=== PATIENT | female | born 1940 | race Caucasian/White ===

== ENCOUNTER 2018-07-19 10:50 | Inpatient (IN) | payer OTHER, MEDICAID ==
[~2018-07-19] VITALS: Ht 160 cm; Wt 83.5 kg
[2018-07-19 11:02] VITALS: BP_SYST 159
[2018-07-19] MEDS ORDERED: ASPIRIN 81 MG TAB.CHEW PO ONE (11:15)
[2018-07-19 11:52] LABS: BASOPHILS # (AUTO) 0.2 K/uL (0.0-0.2); BASOPHILS % (AUTO) 1.9 % (0.0-2.0); EOSINOPHILS # (AUTO) 0.1 K/uL (0.0-0.4); EOSINOPHILS % (AUTO) 0.9 % (0.0-4.0); HEMOGLOBIN 13.5 g/dL (12.0-16.0); LYMPHOCYTES # (AUTO) 1.9 K/uL (1.0-5.5); LYMPHOCYTES % (AUTO) 17.8 % (20.5-51.5); MEAN CORPUSCULAR HEMOGLOBIN 29 pg (27-31); MEAN CORPUSCULAR HGB CONC 33 % (32-36); MEAN CORPUSCULAR VOLUME 89 fL (79.0-98.0); MONOCYTES # (AUTO) 1.1 K/uL (0.0-1.0); MONOCYTES % (AUTO) 10.1 % (1.7-9.3); NEUTROPHILS # (AUTO) 7.1 K/uL (1.8-7.7); NEUTROPHILS % (AUTO) 69.3 % (40.0-70.0); RED BLOOD CELL COUNT(AUTO) 4.59 MIL/uL (4.2-6.2); RED CELL DISTRIBUTION WIDTH 14.4 % (9.0-15.0); WHITE BLOOD COUNT (AUTO) 10.4 K/uL (4.8-10.8)
[2018-07-19] MEDS ORDERED: LORA-258 PO (11:59)
[2018-07-19 12:04] LABS: ANION GAP 9 (5-15); CALCIUM 9.2 mg/dL (8.4-11.0); CHLORIDE 99 mmol/L (98-107); CREATININE 1.78 mg/dL (0.55-1.30); GLUCOSE 234 mg/dL (70-99); PLATELET COUNT (AUTO) 295 K/uL (130-430); POTASSIUM 4.1 mmol/L (3.5-5.1); SODIUM SERUM 135 mmol/L (136-145); UREA NITROGEN, BLOOD 24 mg/dL (8-21)
[2018-07-19 12:10] LABS: ALANINE AMINOTRANSFERASE 9 U/L (12-78); ALBUMIN 3.4 g/dL (3.4-4.8); ASPARTATE AMINOTRANSFERASE 22 U/L (10-37); LIPASE 73 U/L (73-393); PROTHROMBIN TIME 28.5 SECS (9.5-12.5); TOTAL BILIRUBIN 0.7 mg/dL (0.0-1.0)
[2018-07-19 12:53] LABS: BILIRUBIN,URINE NEGATIVE (NEGATIVE); BLOOD, URINE NEGATIVE (NEGATIVE); CLARITY/URINE CLEAR (CLEAR); COLOR,URINE YELLOW (YELLOW); GLUCOSE,URINE 3+ (NEGATIVE); KETONES,URINE 1+ (NEGATIVE); LEUKOCYTE ESTERASE ,URINE NEGATIVE (NEGATIVE); NITRITE, URINE POSITIVE (NEGATIVE); PROTEIN URINE TRACE (NEGATIVE)
[2018-07-19 13:14] LABS: BACTERIA,URINE MODERATE /HPF (None Seen); MUCUS,URINE None Seen /LPF (None Seen); RBC,URINE 0-3 /HPF (0-3)
[2018-07-19] MEDS ORDERED: cefTRIAXone 1 GM IVPB PREMIX 50 ML IV ONE (13:30)
[2018-07-19] MEDS ORDERED: FAMOTIDINE PF 20 MG/2 ML VIAL IVP ONE (14:00)
[2018-07-19] MEDS ORDERED: NOR10 PO (14:22)
[2018-07-19] MEDS ORDERED: INSNLG7030 SUBCUT (14:22)
[2018-07-19] MEDS ORDERED: PRO40 PO (14:22)
[2018-07-19] MEDS ORDERED: ACAR50TA PO (14:22)
[2018-07-19] MEDS ORDERED: NAPH15DR OP (14:22)
[2018-07-19] MEDS ORDERED: DULO20CA PO (14:22)
[2018-07-19] MEDS ORDERED: GABA-531 PO (14:22)
[2018-07-19] MEDS ORDERED: DOCU250C14 PO (14:22)
[2018-07-19] MEDS ORDERED: MULT-1089 PO (14:22)
[2018-07-19] MEDS ORDERED: INSU100V11 SQ (14:22)
[2018-07-19] MEDS ORDERED: CEL20 PO (14:22)
[2018-07-19] MEDS ORDERED: METO25TA6 PO (14:22)
[2018-07-19] MEDS ORDERED: TIMO5DRO4 OP (14:22)
[2018-07-19] MEDS ORDERED: LIP10 PO (14:22)
[2018-07-19] MEDS ORDERED: LURA80TA PO (14:22)
[2018-07-19] MEDS ORDERED: MOM PO (14:22)
[2018-07-19] MEDS ORDERED: LOSA100T3 PO (14:22)
[2018-07-19] MEDS ORDERED: TRI48 PO (14:22)
[2018-07-19] MEDS ORDERED: ACET325T53 PO (14:22)
[2018-07-19] MEDS ORDERED: LEVO25TA76 PO (14:22)
[2018-07-19] MEDS ORDERED: WARF3TAB PO (14:22)
[2018-07-19 15:06] VITALS: BP_SYST 174
[2018-07-19 16:00] VITALS: BP_SYST 155
[2018-07-19] MEDS ORDERED: MILK OF MAGNESIA 30 ML UDC PO PRN (16:15)
[2018-07-19] MEDS ORDERED: DULoxetine HCL 20 MG CAPSULE.DR PO SCH (16:15)
[2018-07-19] MEDS ORDERED: cloNIDine HCL 0.2 MG TABLET PO PRN (16:15)
[2018-07-19] MEDS ORDERED: NAPHAZOLINE HCL/PHENIRAMINE 15 ML OPHT. DROPS OP PRN (16:15)
[2018-07-19] MEDS ORDERED: ONDANSETRON HCL 4 MG/2 ML VIAL IVP PRN (16:15)
[2018-07-19] MEDS ORDERED: LORazepam 1 MG TABLET PO PRN (16:15)
[2018-07-19] MEDS ORDERED: DOCUSATE SODIUM 250 MG CAPSULE PO PRN (16:15)
[2018-07-19] MEDS ORDERED: ONDANSETRON HCL 4 MG/2 ML VIAL ONE (16:20)
[2018-07-19] MEDS ORDERED: METOPROLOL TARTRATE 25 MG TABLET PO ONE (16:30)
[2018-07-19] MEDS ORDERED: GABAPENTIN 300 MG CAPSULE PO ONE (16:30)
[2018-07-19] MEDS ORDERED: DEXTROSE 50% JECT 50 ML DISP.SYRIN IVP PRN (17:00)
[2018-07-19] MEDS ORDERED: METOCLOPRAMIDE HCL 10 MG/2 ML VIAL IVP PRN (17:00)
[2018-07-19] MEDS: INSULIN REGULAR, HUMAN 100 UNITS/ML, 10 ML VIAL (novoLIN R) SUBCUT PRN ×2 (17:27→22:05)
[2018-07-19] MEDS: QUEtiapine FUMARATE 25 MG TABLET PO SCH (18:00)
[2018-07-19 20:12] VITALS: BP_SYST 169
[2018-07-19] MEDS ORDERED: NON-FORMULARY MEDICATION (Lurasidone Hcl (Latuda) 1 TAB) PO SCH (21:00)
[2018-07-19] MEDS: DULoxetine HCL 30 MG CAPSULE.DR (CYMBALTA) PO SCH (21:00)
[2018-07-19] MEDS: ACETAMINOPHEN 325 MG TABLET PO SCH (21:00)
[2018-07-19] MEDS: GABAPENTIN 300 MG CAPSULE PO SCH (21:00)
[2018-07-19] MEDS: DULoxetine HCL 20 MG CAPSULE.DR PO SCH (21:00)
[2018-07-19] MEDS: ATORVASTATIN 10 MG TABLET PO SCH (21:00)
[2018-07-19] MEDS ORDERED: FENOFIBRATE NANOCRYSTALLIZED 48 MG TABLET (TRICOR) PO SCH (21:00)
[2018-07-19] MEDS: METOPROLOL TARTRATE 25 MG TABLET PO SCH (21:00)
[2018-07-19] MEDS: FENOFIBRATE NANOCRYSTALLIZED 48 MG TABLET (TRICOR) PO SCH (21:00)
[2018-07-19] MEDS: PANTOPRAZOLE SODIUM 40 MG/VIAL (PROTONIX) IVP SCH (21:19)
[2018-07-19] MEDS: TIMOLOL MALEATE 0.5% OPHTHALMIC DROPS 5 ML OP SCH (21:48)
[2018-07-19] MEDS ORDERED: LEVOFLOXACIN 500 MG/D5W 100 ML IV ONE ×2 (22:30→23:09)
[2018-07-19] MEDS ORDERED: HALOPERIDOL LACTATE 5 MG/ML VIAL IM ONE (22:30)
[2018-07-19] MEDS ORDERED: ZOLPIDEM TARTRATE 5 MG TABLET PO ONE (22:45)
[2018-07-19] MEDS: D5LR 1,000 ML IV SCH (23:03)
[2018-07-20 04:00] VITALS: BP_SYST 151
[2018-07-20] MEDS: INSULIN REGULAR, HUMAN 100 UNITS/ML, 10 ML VIAL (novoLIN R) SUBCUT PRN ×4 (06:29→20:24)
[2018-07-20 06:49] LABS: BASOPHILS % (AUTO) 0.3 % (0.0-2.0); EOSINOPHILS # (AUTO) 0.1 K/uL (0.0-0.4); LYMPHOCYTES # (AUTO) 1.3 K/uL (1.0-5.5); LYMPHOCYTES % (AUTO) 12.4 % (20.5-51.5); MEAN CORPUSCULAR HEMOGLOBIN 27 pg (27-31); MEAN CORPUSCULAR HGB CONC 30 % (32-36); MEAN CORPUSCULAR VOLUME 89 fL (79.0-98.0); MONOCYTES # (AUTO) 0.9 K/uL (0.0-1.0); MONOCYTES % (AUTO) 8.9 % (1.7-9.3); NEUTROPHILS # (AUTO) 8.2 K/uL (1.8-7.7); PLATELET COUNT (AUTO) 300 K/uL (130-430); RED BLOOD CELL COUNT(AUTO) 4.49 MIL/uL (4.2-6.2); RED CELL DISTRIBUTION WIDTH 14.7 % (9.0-15.0); WHITE BLOOD COUNT (AUTO) 10.5 K/uL (4.8-10.8)
[2018-07-20] MEDS: LEVOTHYROXINE SODIUM 0.025 MG TABLET PO SCH (06:55)
[2018-07-20 06:56] VITALS: BP_SYST 142
[2018-07-20 07:31] LABS: ANION GAP 7 (5-15); CALCIUM 8.8 mg/dL (8.4-11.0); CHLORIDE 100 mmol/L (98-107); GLUCOSE 280 mg/dL (70-99); SODIUM SERUM 135 mmol/L (136-145); UREA NITROGEN, BLOOD 17 mg/dL (8-21)
[2018-07-20 07:51] VITALS: BP_SYST 157
[2018-07-20 07:51] LABS: FREE T4 (FREE THYROXINE) 1.1 ng/dl (0.8-1.5); LIPASE 61 U/L (73-393); THYROID STIMULATING HORMONE 1.25 uIu/mL (0.36-3.74)
[2018-07-20] MEDS: ACETAMINOPHEN 325 MG TABLET PO SCH ×2 (08:10→20:08)
[2018-07-20] MEDS: PANTOPRAZOLE SODIUM 40 MG/VIAL (PROTONIX) IVP SCH ×2 (08:11→20:15)
[2018-07-20] MEDS: LOSARTAN POTASSIUM 50 MG TABLET (COZAAR) PO SCH (08:11)
[2018-07-20] MEDS: cefTRIAXone 1 GM in D5W 50 ML IV SCH (08:23)
[2018-07-20] MEDS: DULoxetine HCL 30 MG CAPSULE.DR (CYMBALTA) PO SCH ×2 (09:00→20:14)
[2018-07-20] MEDS ORDERED: PANTOPRAZOLE SODIUM 40 MG TAB PO SCH (09:00)
[2018-07-20] MEDS: MULTIVITAMINS TAB 1 TABLET PO SCH (09:00)
[2018-07-20] MEDS: GABAPENTIN 300 MG CAPSULE PO SCH ×3 (09:00→20:07)
[2018-07-20] MEDS: METOPROLOL TARTRATE 25 MG TABLET PO SCH ×2 (09:00→20:11)
[2018-07-20] MEDS: CITALOPRAM HYDROBROMIDE 20 MG TABLET PO SCH (09:00)
[2018-07-20] MEDS: DULoxetine HCL 20 MG CAPSULE.DR PO SCH ×2 (09:00→20:14)
[2018-07-20] MEDS: TIMOLOL MALEATE 0.5% OPHTHALMIC DROPS 5 ML OP SCH ×3 (09:00→20:15)
[2018-07-20] MEDS: ACARBOSE 50 MG TABLET PO SCH (09:00)
[2018-07-20] MEDS: amLODIPine BESYLATE 10 MG TABLET PO SCH (09:00)
[2018-07-20] MEDS: D5LR 1,000 ML IV SCH ×3 (11:52→22:57)
[2018-07-20 12:12] LABS: NEUTROPHILS % (AUTO) 77.4 % (40.0-70.0)
[2018-07-20 14:32] VITALS: BP_SYST 152
[2018-07-20] MEDS ORDERED: MORPHINE 4 MG/ML INJ. SYRINGE IVP PRN (16:30)
[2018-07-20] MEDS ORDERED: HALOPERIDOL LACTATE 5 MG/ML VIAL IM PRN (16:30)
[2018-07-20] MEDS ORDERED: LORazepam 2 MG/ML VIAL IVP PRN (16:45)
[2018-07-20] MEDS ORDERED: ONDANSETRON HCL 4 MG/2 ML VIAL IVP PRN (17:00)
[2018-07-20] MEDS: QUEtiapine FUMARATE 25 MG TABLET PO SCH (18:00)
[2018-07-20 20:00] VITALS: BP_SYST 121
[2018-07-20] MEDS: ATORVASTATIN 10 MG TABLET PO SCH (20:07)
[2018-07-20] MEDS: FENOFIBRATE NANOCRYSTALLIZED 48 MG TABLET (TRICOR) PO SCH (20:14)
[2018-07-20] MEDS: ZOLPIDEM TARTRATE 5 MG TABLET PO SCH (20:14)
[2018-07-20] MEDS ORDERED: QUEtiapine FUMARATE 25 MG TABLET PO ONE (20:45)
[2018-07-21 00:29] VITALS: BP_SYST 118
[2018-07-21] MEDS: LEVOTHYROXINE SODIUM 0.025 MG TABLET PO SCH (06:04)
[2018-07-21] MEDS: INSULIN REGULAR, HUMAN 100 UNITS/ML, 10 ML VIAL (novoLIN R) SUBCUT PRN ×3 (06:09→21:45)
[2018-07-21 06:52] LABS: ANION GAP 7 (5-15); CALCIUM 8.9 mg/dL (8.4-11.0); CHLORIDE 104 mmol/L (98-107); CREATININE 1.67 mg/dL (0.55-1.30); GLUCOSE 248 mg/dL (70-99); POTASSIUM 3.9 mmol/L (3.5-5.1); SODIUM SERUM 137 mmol/L (136-145); UREA NITROGEN, BLOOD 11 mg/dL (8-21)
[2018-07-21 07:08] LABS: BASOPHILS # (AUTO) 0.1 K/uL (0.0-0.2); BASOPHILS % (AUTO) 0.8 % (0.0-2.0); EOSINOPHILS # (AUTO) 0.1 K/uL (0.0-0.4); EOSINOPHILS % (AUTO) 1.4 % (0.0-4.0); HEMATOCRIT 34.8 % (36-48); HEMOGLOBIN 11.5 g/dL (12.0-16.0); LYMPHOCYTES # (AUTO) 1.2 K/uL (1.0-5.5); LYMPHOCYTES % (AUTO) 12.8 % (20.5-51.5); MEAN CORPUSCULAR HEMOGLOBIN 29 pg (27-31); MEAN CORPUSCULAR HGB CONC 33 % (32-36); MEAN CORPUSCULAR VOLUME 89 fL (79.0-98.0); MONOCYTES % (AUTO) 10.6 % (1.7-9.3); NEUTROPHILS # (AUTO) 7.1 K/uL (1.8-7.7); NEUTROPHILS % (AUTO) 74.4 % (40.0-70.0); PLATELET COUNT (AUTO) 252 K/uL (130-430); RED BLOOD CELL COUNT(AUTO) 3.92 MIL/uL (4.2-6.2); RED CELL DISTRIBUTION WIDTH 14.4 % (9.0-15.0); WHITE BLOOD COUNT (AUTO) 9.5 K/uL (4.8-10.8)
[2018-07-21 07:15] LABS: INR 3.1 (0.8-1.2); PROTHROMBIN TIME 29.4 SECS (9.5-12.5)
[2018-07-21 07:40] VITALS: BP_SYST 133
[2018-07-21] MEDS: METOPROLOL TARTRATE 25 MG TABLET PO SCH ×2 (09:00→20:31)
[2018-07-21] MEDS: GABAPENTIN 300 MG CAPSULE PO SCH ×3 (09:00→20:30)
[2018-07-21] MEDS: ACETAMINOPHEN 325 MG TABLET PO SCH ×2 (09:00→20:27)
[2018-07-21] MEDS: MULTIVITAMINS TAB 1 TABLET PO SCH (09:00)
[2018-07-21] MEDS: LOSARTAN POTASSIUM 50 MG TABLET (COZAAR) PO SCH (09:00)
[2018-07-21] MEDS: DULoxetine HCL 20 MG CAPSULE.DR PO SCH ×2 (09:00→20:41)
[2018-07-21] MEDS: amLODIPine BESYLATE 10 MG TABLET PO SCH (09:00)
[2018-07-21] MEDS: CITALOPRAM HYDROBROMIDE 20 MG TABLET PO SCH (09:00)
[2018-07-21] MEDS: DULoxetine HCL 30 MG CAPSULE.DR (CYMBALTA) PO SCH ×2 (09:00→20:28)
[2018-07-21] MEDS: ACARBOSE 50 MG TABLET PO SCH (09:00)
[2018-07-21 09:11] LABS: ERYTHROCYTE SEDIMENTATION RATE 35 MM/HR (0-20)
[2018-07-21] MEDS: D5LR 1,000 ML IV SCH ×2 (09:41→21:36)
[2018-07-21] MEDS: PANTOPRAZOLE SODIUM 40 MG/VIAL (PROTONIX) IVP SCH (09:46)
[2018-07-21] MEDS: cefTRIAXone 1 GM in D5W 50 ML IV SCH (09:47)
[2018-07-21] MEDS: TIMOLOL MALEATE 0.5% OPHTHALMIC DROPS 5 ML OP SCH ×3 (09:47→21:47)
[2018-07-21 11:25] VITALS: BP_SYST 104
[2018-07-21] MEDS ORDERED: MEPERIDINE HCL/PF 100 MG/ML AMP ONE (12:10)
[2018-07-21] MEDS ORDERED: MIDAZOLAM HCL 5 MG/5 ML VIAL ONE (12:11)
[2018-07-21] MEDS ORDERED: SIMETHICONE 40 MG/0.6 ML ML ONE (12:11)
[2018-07-21] MEDS ORDERED: FLUCONAZOLE 200 MG TABLET (DIFLUCAN) PO ONE (13:00)
[2018-07-21 15:47] VITALS: BP_SYST 139
[2018-07-21 17:27] VITALS: BP_SYST 127
[2018-07-21] MEDS: QUEtiapine FUMARATE 25 MG TABLET PO SCH (18:00)
[2018-07-21] MEDS ORDERED: FLUCONAZOLE 100 MG TABLET (DIFLUCAN) PO ONE (18:30)
[2018-07-21] MEDS ORDERED: NYSTATIN 500,000 UNITS/5 ML UDC PO ONE (18:30)
[2018-07-21 19:20] VITALS: BP_SYST 135
[2018-07-21] MEDS: ATORVASTATIN 10 MG TABLET PO SCH (20:28)
[2018-07-21] MEDS: PANTOPRAZOLE SODIUM 40 MG TAB PO SCH (20:28)
[2018-07-21] MEDS: ZOLPIDEM TARTRATE 5 MG TABLET PO SCH (20:29)
[2018-07-21] MEDS: NYSTATIN 500,000 UNITS/5 ML UDC PO SCH (20:30)
[2018-07-21] MEDS: FENOFIBRATE NANOCRYSTALLIZED 48 MG TABLET (TRICOR) PO SCH (20:37)
[2018-07-22] MEDS ORDERED: NYSTATIN 500,000 UNITS/5 ML UDC PO SCH
[2018-07-22 00:13] VITALS: BP_SYST 102
[2018-07-22] MEDS: LEVOTHYROXINE SODIUM 0.025 MG TABLET PO SCH (06:03)
[2018-07-22 06:56] LABS: EOSINOPHILS # (AUTO) 0.4 K/uL (0.0-0.4); LYMPHOCYTES # (AUTO) 1.6 K/uL (1.0-5.5); MEAN CORPUSCULAR VOLUME 91 fL (79.0-98.0); RED CELL DISTRIBUTION WIDTH 14.9 % (9.0-15.0)
[2018-07-22 07:02] LABS: ALANINE AMINOTRANSFERASE 25 U/L (12-78); ALBUMIN 2.4 g/dL (3.4-4.8); ANION GAP 5 (5-15); ASPARTATE AMINOTRANSFERASE 65 U/L (10-37); CALCIUM 8.6 mg/dL (8.4-11.0); CHLORIDE 105 mmol/L (98-107); CREATININE 1.76 mg/dL (0.55-1.30); GLUCOSE 178 mg/dL (70-99); POTASSIUM 3.9 mmol/L (3.5-5.1); SODIUM SERUM 138 mmol/L (136-145); TOTAL BILIRUBIN 0.4 mg/dL (0.0-1.0); UREA NITROGEN, BLOOD 14 mg/dL (8-21)
[2018-07-22 07:08] LABS: INR 2.3 (0.8-1.2); PROTHROMBIN TIME 22.2 SECS (9.5-12.5)
[2018-07-22 07:30] LABS: BASOPHILS % (AUTO) 0.4 % (0.0-2.0); EOSINOPHILS % (AUTO) 3.8 % (0.0-4.0); HEMATOCRIT 33.7 % (36-48); HEMOGLOBIN 11.3 g/dL (12.0-16.0); LYMPHOCYTES % (AUTO) 14.7 % (20.5-51.5); MEAN CORPUSCULAR HEMOGLOBIN 31 pg (27-31); MEAN CORPUSCULAR HGB CONC 34 % (32-36); MONOCYTES # (AUTO) 1.2 K/uL (0.0-1.0); MONOCYTES % (AUTO) 11.4 % (1.7-9.3); NEUTROPHILS # (AUTO) 7.4 K/uL (1.8-7.7); NEUTROPHILS % (AUTO) 69.7 % (40.0-70.0)
[2018-07-22 07:31] LABS: WHITE BLOOD COUNT (AUTO) 10.6 K/uL (4.8-10.8)
[2018-07-22 08:04] VITALS: BP_SYST 140
[2018-07-22] MEDS ORDERED: FLUCONAZOLE 100 MG TABLET (DIFLUCAN) PO SCH ×2 (09:00)
[2018-07-22] MEDS: D5LR 1,000 ML IV SCH (09:26)
[2018-07-22] MEDS: cefTRIAXone 1 GM in D5W 50 ML IV SCH (09:30)
[2018-07-22] MEDS: NYSTATIN 500,000 UNITS/5 ML UDC PO SCH ×2 (09:31→14:37)
[2018-07-22] MEDS: ACARBOSE 50 MG TABLET PO SCH (09:32)
[2018-07-22] MEDS: DULoxetine HCL 20 MG CAPSULE.DR PO SCH (09:33)
[2018-07-22] MEDS: DULoxetine HCL 30 MG CAPSULE.DR (CYMBALTA) PO SCH (09:33)
[2018-07-22] MEDS: amLODIPine BESYLATE 10 MG TABLET PO SCH (09:34)
[2018-07-22] MEDS: ACETAMINOPHEN 325 MG TABLET PO SCH (09:35)
[2018-07-22] MEDS: CITALOPRAM HYDROBROMIDE 20 MG TABLET PO SCH (09:35)
[2018-07-22] MEDS: GABAPENTIN 300 MG CAPSULE PO SCH ×2 (09:36→14:37)
[2018-07-22] MEDS: MULTIVITAMINS TAB 1 TABLET PO SCH (09:36)
[2018-07-22] MEDS: PANTOPRAZOLE SODIUM 40 MG TAB PO SCH (09:36)
[2018-07-22] MEDS: LOSARTAN POTASSIUM 50 MG TABLET (COZAAR) PO SCH (09:36)
[2018-07-22] MEDS: METOPROLOL TARTRATE 25 MG TABLET PO SCH (09:37)
[2018-07-22] MEDS: TIMOLOL MALEATE 0.5% OPHTHALMIC DROPS 5 ML OP SCH ×2 (09:37→14:37)
[2018-07-22 10:01] LABS: INR 2.3 (0.8-1.2); PROTHROMBIN TIME 22.2 SECS (9.5-12.5)
[2018-07-22 11:20] LABS: PLATELET COUNT (AUTO) 215 K/uL (130-430)
[2018-07-22] MEDS: INSULIN REGULAR, HUMAN 100 UNITS/ML, 10 ML VIAL (novoLIN R) SUBCUT PRN (11:34)
[2018-07-22 12:02] VITALS: BP_SYST 127
[2018-07-22] MEDS ORDERED: DIF100 PO (15:24)
[2018-07-22] MEDS ORDERED: NYST50002 PO (15:26)
[2018-07-22 15:48] VITALS: BP_SYST 127
== END 2018-07-22 17:56 | DRG 369 ==
LOC: SED 10:50 → STU 14:29 → SMU 07-22 12:53
PROVIDERS: ADMIT Internal Medicine; ATTEND Internal Medicine
PROC: 0DB58ZX Excision of Esophagus, Via Natural or Artificial Opening Endoscopic, Diagnostic (ICD-10-PCS; principal; 2018-07-21 12:30)
DX: B37.81 Candidal esophagitis (principal); N39.0 Urinary tract infection, site not specified; K31.1 Adult hypertrophic pyloric stenosis; I13.0 Hypertensive heart and chronic kidney disease with heart failure and stage 1 through stage 4 chronic kidney disease, or unspecified chronic kidney disease; I50.42 Chronic combined systolic (congestive) and diastolic (congestive) heart failure; T18.128A Food in esophagus causing other injury, initial encounter; E03.9 Hypothyroidism, unspecified; E78.5 Hyperlipidemia, unspecified; I48.2 Chronic atrial fibrillation; E11.22 Type 2 diabetes mellitus with diabetic chronic kidney disease; M81.0 Age-related osteoporosis without current pathological fracture; E11.42 Type 2 diabetes mellitus with diabetic polyneuropathy; M13.0 Polyarthritis, unspecified; K21.0 Gastro-esophageal reflux disease with esophagitis; K29.70 Gastritis, unspecified, without bleeding; K44.9 Diaphragmatic hernia without obstruction or gangrene; F25.9 Schizoaffective disorder, unspecified; F03.90 Unspecified dementia, unspecified severity, without behavioral disturbance, psychotic disturbance, mood disturbance, and anxiety; E86.0 Dehydration; X58.XXXA Exposure to other specified factors, initial encounter; Y93.89 Activity, other specified; Y92.89 Other specified places as the place of occurrence of the external cause; Z90.5 Acquired absence of kidney; Z85.528 Personal history of other malignant neoplasm of kidney; Z87.891 Personal history of nicotine dependence; Z79.899 Other long term (current) drug therapy; Y99.8 Other external cause status; N18.9 Chronic kidney disease, unspecified; R26.81 Unsteadiness on feet
CPT/HCPCS: 36415; 43239; 71045; 80048; 80053; 81000-TC; 82550-TC; 82962; 83036; 83605; 83690-TC; 84439; 84443-TC; 84484; 85025; 85610-TC; 85651-TC; 85730-TC; 87040-TC; 87081; 87086; 88160; 88305; 88313; 93005; 93306; 96365; 96375; 99285; C9113; G0378; J0696; J1815; J1956; J2060; J2175; J2250; J2270; J2405; J2765; J3490; J7060; J7120